=== PATIENT | male | born 1995 | race Hispanic/Latino ===

== ENCOUNTER 2017-03-22 10:16 | Emergency (ER) | payer BC ==
[2017-03-22] MEDS ORDERED: D5NS 0.2% 1,000 ML IV SCH (12:00)
[2017-03-22 12:17] LABS: Hematocrit 22.5 % (35.5-45.6); Hemoglobin 7.9 gm/dl (11.8-15.2); Mean Corpuscular HGB Conc 35 % (32-34); Mean Corpuscular Hemoglobin 31 pg (28-32); Mean Corpuscular Volume 89 fl (84-94); Platelet Count 324 K/mm3 (140-440); Red Blood Count 2.52 M/mm3 (3.65-5.03)
[2017-03-22 12:19] LABS: Red Cell Distribution Width 27.1 % (13.2-15.2)
[2017-03-22] MEDS ORDERED: BENADRYL IV ONE (15:03)
[2017-03-22] MEDS ORDERED: TORADOL IV ONE (15:03)
[2017-03-22] MEDS ORDERED: DILAUDID IV ONE ×2 (15:03→17:21)
[2017-03-22] MEDS ORDERED: ZOFRAN IV ONE (15:03)
[2017-03-22 15:05] LABS: Basophils % (Manual) 0 % (0.0-1.8); Eosinophils % (Manual) 0 % (0.0-4.3); Myelocytes # (Manual) 0.3 K/mm3; Total Cells Counted 100
[2017-03-22 15:06] LABS: Anisocytosis 3+; Hypochromasia 1+; Macrocytosis 2+; Platelet Estimate Consistent w Auto; Sickle Cells 3+; Target Cells 1+
[2017-03-22 19:42] VITALS: BP 104/62
--- NOTE | 2017-03-22 19:44 | Emergency Department Report ---
ED General Adult HPI - General Chief complaint: Sickle Cell Crisis Stated complaint: SICKLE CELL CRISIS Time Seen by Provider: 03/22/17 15:02 Source: patient Mode of arrival: Ambulatory Limitations: No Limitations - History of Present Illness Initial comments: 22 yo male with a male with a past medical history of sickle cell disease process to the hospital with complaints of sickle cell crisis since this am. Patient is not currently taking any medication but typically takes Tylenol 3 when he has an acute crises. 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 His pain is generalized bones 7/10 in intensity, throbbing, and constant. No aggravating or alleviating factors reported. He denies headache, chest pain, shortness of breath, abdominal pain, shortness of breath, or fever. Severity scale (0 -10): 7 - Related Data Home Medications Medication Instructions Recorded Confirmed Last Taken No Known Home Medications [No 03/22/17 03/22/17 Unknown Reported Home Medications] Allergies Allergy/AdvReac Type Severity Reaction Status Date / Time No Known Allergies Allergy Verified 03/22/17 11:50 ED Review of Systems ROS: Stated complaint: SICKLE CELL CRISIS Other details as noted in HPI Comment: All other systems reviewed and negative Other: Constitutional: No fevers chills Eyes: No eye pain visual changes ENT: No ear pain or throat pain Neck: Denies pain Respiratory: Denies cough wheezing shortness of breath Cardiovascular: Denies chest pain, palpitations, syncope GI: Denies abdominal pain, nausea, vomiting, diarrhea : Denies dysuria Musculoskeletal: as per hpi Skin: Denies rash, lesions, erythema Neurologic: Denies headache, numbness, weakness Psychiatric: Denies suicidal ideation, hallucinations ED Past Medical Hx - Past Medical History Previous Medical History?: Yes Hx Sickle Cell Disease: Yes - Surgical History Past Surgical History?: No - Social History Smoking Status: Current Some Day Smoker Substance Use Type: Alcohol - Medications Home Medications: Home Medications Medication Instructions Recorded Confirmed Last Taken Type No Known Home Medications [No 03/22/17 03/22/17 Unknown History Reported Home Medications] ED Physical Exam - General Limitations: No Limitations - Other Other exam information: General: No limitations, patient is alert in no acute distress Head exam: Atraumatic, normocephalic Eyes exam: Normal appearance ENT: Moist mucous membrane, normal oropharynx Neck exam: Normal inspection, full range of motion, no meningismus nontender Respiratory exam: Clear to auscultation bilateral, no wheezes, rales, crackles Cardiovascular: Normal rate and rhythm, normal heart sounds Abdomen: Soft, nondistended, and nontender, with normal bowel sounds, no rebound, or guarding Extremity: Full range of motion normal inspection no deformity Back: Normal Inspection, full range of motion, no tenderness Neurologic: Alert, oriented x3, cranial nerves intact, no motor or sensory deficit Psychiatric: normal affect, normal mood Skin: Warm, dry, intact ED Course Vital Signs 03/22/17 03/22/17 11:47 13:28 Temperature 97.9 F Pulse Rate 64 74 Respiratory 16 16 Rate Blood Pressure 107/65 Blood Pressure 108/46 [Left] O2 Sat by Pulse 99 96 Oximetry - Reevaluation(s) Reevaluation #1: 03/22/17 19:46 after multiple doses Dilauid and IVF pt continues to have pain. ED Medical Decision Making - Lab Data Result diagrams: 03/22/17 11:55 Lab Results 03/22/17 Range/Units 11:55 WBC 14.1 H (4.5-11.0) K/mm3 RBC 2.52 L (3.65-5.03) M/mm3 Hgb 7.9 L (11.8-15.2) gm/dl Hct 22.5 L (35.5-45.6) % MCV 89 (84-94) fl MCH 31 (28-32) pg MCHC 35 H (32-34) % RDW 27.1 H (13.2-15.2) % Plt Count 324 (140-440) K/mm3 Add Manual Diff Complete Total Counted 100 Seg Neuts % (Manual) 53.0 (40.0-70.0) % Band Neutrophils % 0 % Lymphocytes % (Manual) 27.0 (13.4-35.0) % Reactive Lymphs % (Man) 1.0 % Monocytes % (Manual) 17.0 H (0.0-7.3) % Eosinophils % (Manual) 0 (0.0-4.3) % Basophils % (Manual) 0 (0.0-1.8) % Metamyelocytes % 0 % Myelocytes % 2.0 % Promyelocytes % 0 % Blast Cells % 0 % Nucleated RBC % 3.0 H (0.0-0.9) % Seg Neutrophils # Man 7.5 (1.8-7.7) K/mm3 Band Neutrophils # 0.0 K/mm3 Lymphocytes # (Manual) 3.8 (1.2-5.4) K/mm3 Abs React Lymphs (Man) 0.1 K/mm3 Monocytes # (Manual) 2.4 H (0.0-0.8) K/mm3 Eosinophils # (Manual) 0.0 (0.0-0.4) K/mm3 Basophils # (Manual) 0.0 (0.0-0.1) K/mm3 Metamyelocytes # 0.0 K/mm3 Myelocytes # 0.3 K/mm3 Promyelocytes # 0.0 K/mm3 Blast Cells # 0.0 K/mm3 WBC Morphology Not Reportable Hypersegmented Neuts Not Reportable Hyposegmented Neuts Not Reportable Hypogranular Neuts Not Reportable Smudge Cells Not Reportable Toxic Granulation Not Reportable Toxic Vacuolation Not Reportable Dohle Bodies Not Reportable Pelger-Huet Anomaly Not Reportable Marilee Rods Not Reportable Platelet Estimate Consistent w auto Clumped Platelets Not Reportable Plt Clumps, EDTA Not Reportable Large Platelets Not Reportable Giant Platelets Not Reportable Platelet Satelliting Not Reportable Plt Morphology Comment Not Reportable RBC Morphology Not Reportable Dimorphic RBCs Not Reportable Polychromasia 2+ Hypochromasia 1+ Poikilocytosis Not Reportable Anisocytosis 3+ Microcytosis Not Reportable Macrocytosis 2+ Spherocytes Not Reportable Pappenheimer Bodies Not Reportable Sickle Cells 3+ Target Cells 1+ Tear Drop Cells Not Reportable Ovalocytes Not Reportable Helmet Cells Not Reportable Tse-[place] Bodies Not Reportable [place] Rings Not Reportable [place] Cells Not Reportable Bite Cells Not Reportable Crenated Cell Not Reportable Elliptocytes Not Reportable Acanthocytes (Spur) Not Reportable Rouleaux Not Reportable Hemoglobin C Crystals Not Reportable Schistocytes Not Reportable Malaria parasites Not Reportable Percent Retic 16.40 H (0.78-2.58) % Prosper Bodies Not Reportable Hem Pathologist Commnt No - Medical Decision Making sickle cell pain crises pain uncontrolled despite ed treatment will admit for controll anemia (baseline unknown) elevated retic count Pain to admit for further management - Differential Diagnosis sickle cell crises, anemia, infection, Critical Care Time: No Critical care attestation.: If time is entered above; I have spent that time in minutes in the direct care of this critically ill patient, excluding procedure time. ED Disposition Clinical Impression: Sickle cell crisis Disposition: OP ADMIT IP TO THIS HOSP Is pt being admited?: Yes Condition: Stable Time of Disposition: 19:40 (Hospitalist)
--- NOTE | 2017-03-22 20:42 | History and Physical Report ---
History of Present Illness Date of examination: 03/22/17 Medications and Allergies Allergies Allergy/AdvReac Type Severity Reaction Status Date / Time No Known Allergies Allergy Verified 03/22/17 11:50 Home Medications Medication Instructions Recorded Confirmed Last Taken Type No Known Home Medications [No 03/22/17 03/22/17 Unknown History Reported Home Medications] Active Meds: Active Medications Dextrose/Sodium Chloride (D5ns 0.2%) 1,000 mls @ 250 mls/hr IV DIRECT NUZHAT Last Admin: 03/22/17 15:35 Dose: 250 mls/hr Exam - Constitutional Vitals: Temp Pulse Resp BP Pulse Ox 98.5 F 84 19 104/62 97 03/22/17 19:15 03/22/17 19:15 03/22/17 19:15 03/22/17 19:15 03/22/17 19:15 Results - Labs CBC & Chem 7: 03/22/17 11:55 Labs: Laboratory Last Values WBC 14.1 K/mm3 (4.5-11.0) H 03/22/17 11:55 RBC 2.52 M/mm3 (3.65-5.03) L 03/22/17 11:55 Hgb 7.9 gm/dl (11.8-15.2) L 03/22/17 11:55 Hct 22.5 % (35.5-45.6) L 03/22/17 11:55 MCV 89 fl (84-94) 03/22/17 11:55 MCH 31 pg (28-32) 03/22/17 11:55 MCHC 35 % (32-34) H 03/22/17 11:55 RDW 27.1 % (13.2-15.2) H 03/22/17 11:55 Plt Count 324 K/mm3 (140-440) 03/22/17 11:55 Add Manual Diff Complete 03/22/17 11:55 Total Counted 100 03/22/17 11:55 Seg Neuts % (Manual) 53.0 % (40.0-70.0) 03/22/17 11:55 Band Neutrophils % 0 % 03/22/17 11:55 Lymphocytes % (Manual) 27.0 % (13.4-35.0) 03/22/17 11:55 Reactive Lymphs % (Man) 1.0 % 03/22/17 11:55 Monocytes % (Manual) 17.0 % (0.0-7.3) H 03/22/17 11:55 Eosinophils % (Manual) 0 % (0.0-4.3) 03/22/17 11:55 Basophils % (Manual) 0 % (0.0-1.8) 03/22/17 11:55 Metamyelocytes % 0 % 03/22/17 11:55 Myelocytes % 2.0 % 03/22/17 11:55 Promyelocytes % 0 % 03/22/17 11:55 Blast Cells % 0 % 03/22/17 11:55 Nucleated RBC % 3.0 % (0.0-0.9) H 03/22/17 11:55 Seg Neutrophils # Man 7.5 K/mm3 (1.8-7.7) 03/22/17 11:55 Band Neutrophils # 0.0 K/mm3 03/22/17 11:55 Lymphocytes # (Manual) 3.8 K/mm3 (1.2-5.4) 03/22/17 11:55 Abs React Lymphs (Man) 0.1 K/mm3 03/22/17 11:55 Monocytes # (Manual) 2.4 K/mm3 (0.0-0.8) H 03/22/17 11:55 Eosinophils # (Manual) 0.0 K/mm3 (0.0-0.4) 03/22/17 11:55 Basophils # (Manual) 0.0 K/mm3 (0.0-0.1) 03/22/17 11:55 Metamyelocytes # 0.0 K/mm3 03/22/17 11:55 Myelocytes # 0.3 K/mm3 03/22/17 11:55 Promyelocytes # 0.0 K/mm3 03/22/17 11:55 Blast Cells # 0.0 K/mm3 03/22/17 11:55 WBC Morphology Not Reportable 03/22/17 11:55 Hypersegmented Neuts Not Reportable 03/22/17 11:55 Hyposegmented Neuts Not Reportable 03/22/17 11:55 Hypogranular Neuts Not Reportable 03/22/17 11:55 Smudge Cells Not Reportable 03/22/17 11:55 Toxic Granulation Not Reportable 03/22/17 11:55 Toxic Vacuolation Not Reportable 03/22/17 11:55 Dohle Bodies Not Reportable 03/22/17 11:55 Pelger-Huet Anomaly Not Reportable 03/22/17 11:55 Marilee Rods Not Reportable 03/22/17 11:55 Platelet Estimate Consistent w auto 03/22/17 11:55 Clumped Platelets Not Reportable 03/22/17 11:55 Plt Clumps, EDTA Not Reportable 03/22/17 11:55 Large Platelets Not Reportable 03/22/17 11:55 Giant Platelets Not Reportable 03/22/17 11:55 Platelet Satelliting Not Reportable 03/22/17 11:55 Plt Morphology Comment Not Reportable 03/22/17 11:55 RBC Morphology Not Reportable 03/22/17 11:55 Dimorphic RBCs Not Reportable 03/22/17 11:55 Polychromasia 2+ 03/22/17 11:55 Hypochromasia 1+ 03/22/17 11:55 Poikilocytosis Not Reportable 03/22/17 11:55 Anisocytosis 3+ 03/22/17 11:55 Microcytosis Not Reportable 03/22/17 11:55 Macrocytosis 2+ 03/22/17 11:55 Spherocytes Not Reportable 03/22/17 11:55 Pappenheimer Bodies Not Reportable 03/22/17 11:55 Sickle Cells 3+ 03/22/17 11:55 Target Cells 1+ 03/22/17 11:55 Tear Drop Cells Not Reportable 03/22/17 11:55 Ovalocytes Not Reportable 03/22/17 11:55 Helmet Cells Not Reportable 03/22/17 11:55 Tse-[place] Bodies Not Reportable 03/22/17 11:55 [place] Rings Not Reportable 03/22/17 11:55 [place] Cells Not Reportable 03/22/17 11:55 Bite Cells Not Reportable 03/22/17 11:55 Crenated Cell Not Reportable 03/22/17 11:55 Elliptocytes Not Reportable 03/22/17 11:55 Acanthocytes (Spur) Not Reportable 03/22/17 11:55 Rouleaux Not Reportable 03/22/17 11:55 Hemoglobin C Crystals Not Reportable 03/22/17 11:55 Schistocytes Not Reportable 03/22/17 11:55 Malaria parasites Not Reportable 03/22/17 11:55 Percent Retic 16.40 % (0.78-2.58) H 03/22/17 11:55 Prosper Bodies Not Reportable 03/22/17 11:55 Hem Pathologist Commnt No 03/22/17 11:55
== END 2017-03-22 21:10 | disposition left against medical advice (07) ==
LOC: ED 10:16
DX: D57.00 Hb-SS disease with crisis, unspecified (principal); F17.200 Nicotine dependence, unspecified, uncomplicated
CPT/HCPCS: 36415; 85007; 85025; 85045; 96361; 96374; 96375; 96376; 99284; J1170; J1200; J1885; J2405